=== PATIENT | female | born 1995 | race Two or more races ===

== ENCOUNTER 2021-10-21 19:03 | Emergency (ER) | payer OTHER ==
[~2021-10-21] VITALS: Ht 157.5 cm; Wt 47.2 kg
[2021-10-21] MEDS ORDERED: MACROBID 100 M100 MG PO (22:12)
== END 2021-10-21 22:26 | disposition home or self-care (01) ==
LOC: ER 19:03
DX: N39.0 Urinary tract infection, site not specified (principal)